=== PATIENT | female | born 1965 | race Caucasian/White ===

== ENCOUNTER 2016-11-08 15:36 | Emergency (ER) | payer OTHER ==
[2016-11-08 16:47] VITALS: RESP 16; TEMP 99.3
--- NOTE | 2016-11-08 18:47 | EDPHY ---
H & P Time Seen by Provider: 11/08/16 17:38 HPI/ROS: CHIEF COMPLAINT: Cough, sore throat HISTORY OF PRESENT ILLNESS: 51-year-old female presents to the emergency department with cough that has been ongoing intermittently for last 2 weeks. She states that 2 weeks ago she had a fever of 101 and this has now resolved. She continues however to have a cough. She does not feel short of breath currently. No recent travel. Her daughter is now sick with similar symptoms. Denies dysphagia. No rash. No headache. No neck or back pain. The mother is very sensitive to smells and notes that she has someone in her apartment building that has been smoking cigarettes and smoking marijuana. There also using air fractures which are all known triggers for her. She was last on antibiotics for pneumonia back in June. He denies calf pain or swelling. REVIEW OF SYSTEMS: Constitutional: No fever, no chills. Eyes: No double or blurry vision. ENT: Sore throat as above Respiratory: Cough, shortness of breath Cardiac: No chest pain. Gastrointestinal: No abdominal pain, vomiting or diarrhea. Genitourinary: No dysuria. Musculoskeletal: No neck or back pain. Skin: No rashes. Neurological: No headache. Past Medical/Surgical History: GERD, gastroparesis, asthma Social History: Lives with her daughter in [place] Smoking Status: Never smoked Physical Exam: General Appearance: Alert, no distress. Afebrile. 97% on room air. Eyes: Pupils equal and round. Extraocular motions are all intact. ENT: Mouth: Mucous membranes moist. Respiratory: No wheezing, rhonchi, or rales, lungs are clear to auscultation. Cardiovascular: Regular rate and rhythm. Gastrointestinal: Abdomen is soft and nontender, no masses, no rebound or guarding, bowel sounds normal. Neurological: Alert and oriented x 3, cranial nerves II through XII grossly intact Skin: Warm and dry, no rashes. Musculoskeletal: Nontender to palpate along the cervical, thoracic or lumbar spine. Neck is supple. Extremities: Full range of motion and no peripheral edema. Psychiatric: Patient is oriented X 3, there is no agitation. Constitutional: Initial Vital Signs Temperature (C) 37.4 C 11/08/16 16:42 Heart Rate 90 11/08/16 16:42 Respiratory Rate 16 11/08/16 16:42 Blood Pressure 116/73 11/08/16 16:42 O2 Sat (%) 96 11/08/16 16:42 O2 Delivery Mode Room Air Allergies/Adverse Reactions: acetaminophen [From Percocet] Allergy (Verified 11/08/16 16:37) Cephalosporins Allergy (Verified 11/08/16 16:35) ibuprofen Allergy (Verified 11/08/16 16:36) latex Allergy (Verified 11/08/16 16:38) mercury (elemental) Allergy (Verified 11/08/16 16:37) oxycodone [From Percocet] Allergy (Verified 11/08/16 16:37) Penicillins Allergy (Verified 11/08/16 16:34) prednisone Allergy (Verified 11/08/16 16:37) Sulfa (Sulfonamide Antibiotics) Allergy (Verified 11/08/16 16:35) Home Medications: Medication Instructions Recorded Aciphex 11/08/16 Bystolic 11/08/16 Cyclobenzaprine 11/08/16 Erythromycin Base [Erythromycin] 1,000 mg PO TID #42 tablet 11/08/16 Levalbuterol Inhaler [Xopenex Hfa 1 puffs IH TID PRN #1 mdi 11/08/16 Inhaler (*)] Lortab 10 mg-300 mg/15 ml Elxr 11/08/16 Ranitidine HCl 11/08/16 Singulair 11/08/16 Xopenex 11/08/16 Zofran 11/08/16 traZODone 11/08/16 Medical Decision Making ED Course/Re-evaluation: Rapid strep and influenza were negative. The patient feels very strongly that she is developing bronchitis. She has also had a history of pneumonia. She is requesting erythromycin 1000 mg three times daily. She was given 1 week supply. She was also given refill of her Xopenix. She was encouraged to have close follow-up with primary care provider return if she develops fever or any other changes. Patient declined chest x-ray. She states "I have had too many chest x-rays and CT scans." Differential Diagnosis: Including but not limited to bronchitis, pneumonia, influenza, viral upper respiratory infection - Data Points Laboratory Results: 11/08/16 11/08/16 11/08/16 Unknown 17:50 17:50 Influenza A & B (PCR) NEGATIVE FOR FLU (NEGATIVE) Group A Strep Screen NEGATIVE (NEGATIVE) Group A Strep DNA NEGATIVE (NEGATIVE) Departure - Departure Disposition: Home, Routine, Self-Care Clinical Impression: Acute bronchitis Qualifiers: Bronchitis organism: unspecified organism Qualified Code(s): J20.9 - Acute bronchitis, unspecified Condition: Good Instructions: Acute Bronchitis (ED) Additional Instructions: Erythromycin 1000 mg 3 times daily per your request for 1 week. Xopenix inhaler as directed. Return if you developed recurring fever, shortness of breath or if you feel worse in any way. Referrals: LLOYD VAZQUEZ [Other] - As per Instructions Prescriptions: Erythromycin Base [Erythromycin] 1,000 mg PO TID #42 tablet Levalbuterol Inhaler [Xopenex Hfa Inhaler (*)] 1 puffs IH TID PRN #1 mdi PRN Reason: P.r.n. dyspnea
[2016-11-08 22:31] VITALS: BP 125/82; PULSE 88; O2SAT 92
== END 2016-11-08 22:30 | disposition home or self-care (01) ==
DX: J20.9 Acute bronchitis, unspecified (principal); J45.909 Unspecified asthma, uncomplicated; Z91.040 Latex allergy status